=== PATIENT | male | born 1990 | race African-American/Black ===

== ENCOUNTER 2019-11-26 09:47 | Emergency (ER) | payer OTHER ==
[~2019-11-26] VITALS: Ht 177.8 cm; Wt 90.7 kg
== END 2019-11-26 11:44 | disposition home or self-care (01) ==
LOC: ED 09:47
DX: H61.22 Impacted cerumen, left ear (principal)

== ENCOUNTER 2020-05-12 02:03 | Emergency (ER) | payer OTHER ==
[2020-05-12] MEDS ORDERED: CYCLOBENZAPRINE10 MG PO (03:51)
[2020-05-12] MEDS ORDERED: MEDROL DOSEPAK4 MG PO (03:51)
== END 2020-05-12 03:57 | disposition home or self-care (01) ==
LOC: ED 02:03
DX: M54.31 Sciatica, right side (principal)